=== PATIENT | female | born 1975 | race Caucasian/White ===

== ENCOUNTER 2018-02-25 02:17 | Emergency (ER) | payer BC ==
[~2018-02-25] VITALS: Ht 160 cm; Wt 91.6 kg
[2018-02-25 02:26] VITALS: Ht 160 cm; Wt 91.6 kg
[2018-02-25 05:55] VITALS: BP 116/80
== END 2018-02-25 05:55 | disposition home or self-care (01) ==
LOC: ED 02:17
DX: R51 Headache (principal); E03.9 Hypothyroidism, unspecified; Z90.710 Acquired absence of both cervix and uterus
CPT/HCPCS: J1200; J2765; J7030